=== PATIENT | female | born 1995 | race Caucasian/White ===

== ENCOUNTER 2019-12-01 09:30 | Emergency (ER) | payer OTHER, SELFPAY ==
[2019-12-01 09:42] VITALS: BP 123/72; PULSE 81; RESP 16; TEMP 36.4; O2SAT 100
[2019-12-01] MEDS: GLUCAGON,HUMAN RECOMBINANT 1 MG/ML VIAL IV (13:43)
--- NOTE | 2019-12-01 14:24 | PC.NURSE ---
c/o food bolus to right of throat. Able to eat and drink w/o difficulty.
[2019-12-01 15:12] VITALS: BP 138/70; PULSE 95; RESP 18; O2SAT 100
--- NOTE | 2019-12-01 21:30 | ED.SKABFB ---
HPI - Skin/Abscess/Foreign Bdy <ARIADNE Berg - Last Filed: 12/01/19 21:43> General Chief complaint: Skin/Abscess/Foreign Body Stated complaint: Allergic esophagus, something stuck in throat Time Seen by Provider: 12/01/19 10:57 Source: patient Mode of arrival: Ambulatory Limitations: no limitations History of Present Illness HPI narrative: This is a 24-year-old female, nonsmoker, who presents to ED with history of allergic esophagus and since last night she has a tiny piece of garlic stuck in right-side of throat. Patient reports with allergy esophagus, she has constriction in her esophagus with any types of foods and occasionally has exacerbation. Patient usually relieves her symptoms by throwing up and using muscle relaxant in the past. Patient also had previous EGDs to remove foreign bodies. Patient denies dyspnea, difficulty swallowing, difficulty managing oral secretion. Last menstruation in mid November. Related Data Allergies Allergy/AdvReac Type Severity Reaction Status Date / Time metronidazole [From Flagyl] Allergy Verified 12/01/19 09:42 Review of Systems <ARIADNE Berg - Last Filed: 12/01/19 21:43> Review of Systems Narrative: General: Denies fever, chills, fatigue, malaise, sweats. HEENT: Denies sinus pain, ear pain, sore throat, difficulty swallowing, dizziness. Respiratory: Denies dyspnea, cough, wheezing, hemoptysis, sputum. Cardiovascular: Denies chest pain, palpitations, orthopnea, edema. Gastrointestinal: See HPI : Denies dysuria, frequency, incontinence, hematuria, urinary retention. Musculoskeletal: Denies weakness, joint pain or bony pain. Skin: Denies rash, skin lesions, or other. Neurologic: Denies weakness, headache, numbness, change in speech, confusion, seizures, incoordination. Psychiatric: No concerning psychosocial issues. 12-point review of systems is negative except for those stated above. Patient History <ARIADNE Berg - Last Filed: 12/01/19 21:43> Surgical History Hx of esophagogastroduodenoscopy (Acute) Social History Smoking Status: Never smoker Smoking Status: Never smoker alcohol intake frequency: 0-2 drinks per day Substance Use Type: does not use Exam <ARIADNE Berg - Last Filed: 12/01/19 21:43> Narrative Exam Narrative: GEN: Alert, oriented x 3, well appearing and nourished, and in no acute distress. Head: Normal cephalic, atraumatic. No scalp or temporal tenderness, palpable mass or rash. EYES: Pupils are equal, round, and reactive to light and accommodation. Extraocular muscles are intact bilaterally. There is no subconjunctival hemorrhage, exudate and sclera non-icteric. ENT: Bilateral auditory canals and tympanic membranes clear. Hearing grossly intact. Nose without bleeding, purulent discharge or deviation. Facial sinuses nontender to palpate. Mucous membrane moist, no mucosal lesion. Throat without erythema, tonsillar hypertrophy or exudate. Uvula in midline, airway patent. Neck: Trachea in midline. No JVD, non-tender without lymphadenopathy. No masses or thyroid megaly. Supple, non-tender and no meningeal signs. CARDIAC: Normal regular rate and rhythm without murmurs, gallops, or rubs. No chest wall tenderness. No peripheral edema, cyanosis or pallor. Capillary refill is less than 2 seconds. RESPIRATORY: Lungs are clear to auscultate bilaterally. No cough, wheezes, rales, or rhonchi. No stridor, respiratory distress, increase work of breathing, or accessary muscle used. Able to manage oral secretion without difficulty, no drooling. ABD: Abdomen soft, nontender and non-distended. No guarding or rebound tenderness to palpate. Bowel sounds are normal in all 4 quadrants. There is no palpable masses or organomegaly. EXT: Full painless ROM of all extremities with no loss of sensation, strength, effusion or edema. SKIN: Warm, dry, normal color for patient. No erythema, lesions or rash over visible areas. BACK: Nontender without deformity or crepitance. No flank tenderness. NEUROLOGICAL: Alert and oriented to place, time and person. Sensation and motor function intact bilaterally. No facial droops, dysphasia. PSYCHIATRIC: Good judgement and reason, without hallucinations, abnormal affect or abnormal behaviors during the examination. Initial Vital Signs Initial Vital Signs: Vital Signs Temperature 97.6 F 12/01/19 09:42 Pulse Rate 81 12/01/19 09:42 Respiratory Rate 16 12/01/19 09:42 Blood Pressure 123/72 12/01/19 09:42 Pulse Oximetry 100 12/01/19 09:42 <Radha Thayer DO - Last Filed: 12/03/19 19:33> Initial Vital Signs Initial Vital Signs: Vital Signs Temperature 97.6 F 12/01/19 09:42 Pulse Rate 81 12/01/19 09:42 Respiratory Rate 16 12/01/19 09:42 Blood Pressure 123/72 12/01/19 09:42 Pulse Oximetry 100 12/01/19 09:42 Scores <ARIADNE Berg - Last Filed: 12/01/19 21:43> GCS Meño coma scale eye opening: Spontaneous Meño coma scale verbal response: Orientated [place] coma scale motor response: Obey commands Meño coma scale total score: 15 Course <Behzad ARIADNE Murphy - Last Filed: 12/01/19 21:43> Orders Ordered: Discontinued Medications Al Hydrox/Mg Hydrox/Simethicone 20 ml/ Lidocaine HCl 15 ml 0 ml PO NOW ONE Stop: 12/01/19 14:37 Last Admin: 12/01/19 15:12 Dose: Not Given Documented by: RAYSA Glucagon (Glucagen) 1 mg IV NOW ONE Stop: 12/01/19 10:57 Last Admin: 12/01/19 13:43 Dose: 1 mg Documented by: RAYSA Vital Signs Vital signs: Vital Signs - 8 hr 12/01/19 15:12 Pulse Rate 95 H Respiratory Rate 18 Blood Pressure 138/70 Pulse Oximetry 100 <Radha Thayer DO - Last Filed: 12/03/19 19:33> Orders Ordered: Discontinued Medications Al Hydrox/Mg Hydrox/Simethicone 20 ml/ Lidocaine HCl 15 ml 0 ml PO NOW ONE Stop: 12/01/19 14:37 Last Admin: 12/01/19 15:12 Dose: Not Given Documented by: RAYSA Glucagon (Glucagen) 1 mg IV NOW ONE Stop: 12/01/19 10:57 Last Admin: 12/01/19 13:43 Dose: 1 mg Documented by: RAYSA Vital Signs Vital signs: Vital Signs - 8 hr 12/01/19 15:12 Pulse Rate 95 H Respiratory Rate 18 Blood Pressure 138/70 Pulse Oximetry 100 [facility] - Skin/Abscess/Foreign Bdy <Behzad Perry-ARIADNE Garcia - Last Filed: 12/01/19 21:43> Differential Diagnosis Differential diagnosis: Likely other (Esophageal irritation, esophageal foreign body) Medical Records Attestation: I reviewed the patient's medical records. MDM Narrative Medical decision making narrative: This is 24 year female who reports allergic esophagus with foreign body impaction in her throat who had EGD procedures in the past to relieve this. Patient reports this has been done in [facility] and no previous records were available in [facility] EMR. No drooling, dyspnea, muffled voice or dysphagia appreciated since last night and patient reports having a tiny piece of garlic stuck in her right-sided throat with foreign body sensation. Glucagon was tried via IV and patient was able to swallow a small can of soda but patient reports remaining symptoms. When patient was offered follow-up with [facility] outpatiently since she is able to tolerate fluids and able to manage her own secretion with dyspnea, patient became upset and declined other medications to help with her symptoms such as GI cocktail and requests to be discharged to home. No further imaging test has been considered at this time. Patient's vital signs were stable with 100% oxygenation in RA. Return precautions were discussed with the patient and a referral to [facility] provided. Patient verbalized understanding. Discharge Plan Departure Patient Disposition: Home Clinical Impression: Foreign body of throat Qualifiers: Encounter type: initial encounter Qualified Code(s): T17.208A - Unspecified foreign body in pharynx causing other injury, initial encounter Discharge Date/Time: 12/01/19 15:12 Instructions: DI for Foreign Body, Swallowed-Adult Activity Restrictions/Additional Instructions: You have been diagnosed with [possible foreign body/foreign body sensation in right-sided throat since last night. You were able to swallow fluids and able to manage her oral secretion without difficulty. You were given glucagon IV without much changes.]. What to do: *Take your medications as directed. *Follow up with your primary care provider in 2-3 days/call [facility] for an appointment. Let them know you were seen in the ED and that we asked you to be seen in follow up for a evaluation and possible EGD. *Return to ED if you have any new, worsening, or concerning symptoms, such as [breathing difficulty, chest pain, unable to tolerate fluids, trouble with manage or secretion, fever, or any acute concerns]. Referrals: [facility] [Provider Group] Isis Delgado [Primary Care Provider] -
== END 2019-12-01 15:12 | disposition home or self-care (01) ==
PROVIDERS: Emergency Provider Nurse Practitioner Family; PCP Physician Assistant Medical
DX: T18.128A Food in esophagus causing other injury, initial encounter (principal)
CPT/HCPCS: 96374; 99283; 99284; J1610

== ENCOUNTER 2021-11-03 15:52 | Emergency (ER) | payer OTHER, MEDICAID, SELFPAY ==
[2021-11-03 16:53] VITALS: BP 134/79; PULSE 94; RESP 18; TEMP 36.3; O2SAT 98; BMI 33.5
[2021-11-03 17:31] LABS: Add Manual Diff / Slide Review NO; Basophils Absolute Auto 100 /uL (0-100); Basophils Percent Auto 0.7 % (0-2); Eosinophils Absolute Auto 600 /uL (0-450); Eosinophils Percent Auto 3.9 % (2-4); Hematocrit 39.6 % (36-46); Hemoglobin 13.5 g/dL (12.0-16.0); Lymphocytes Absolute Auto 3300 /uL (1100-4500); Lymphocytes Percent Auto 23.1 % (25-40); Mean Corpuscular HGB Conc 34.1 % (30-36); Mean Corpuscular Hemoglobin 29.6 PG (26-34); Mean Corpuscular Volume 86.8 fL (80-100); Monocytes Absolute Auto 1000 /uL (0-900); Monocytes Percent Auto 6.8 % (3-14); Neutrophils Absolute Auto 9500 /uL (1500-7000); Neutrophils Percent Auto 65.5 % (50-75); Platelet Count 249 X10^3/uL (150-400); Red Blood Cell Count 4.56 X10^6/uL (4.0-5.2); Red Cell Distribution Width 13.7 % (11.6-14.8); White Blood Cell Count 14.5 X10^3/uL (4.5-11.0)
[2021-11-03 17:43] LABS: Alanine Aminotransferase 23 IU/L (<35); Albumin 4.7 g/dL (3.5-5.0); Albumin Globulin Ratio 1.4 (1.0-2.8); Alkaline Phosphatase 74 U/L (38-126); Aspartate Aminotransferase 25 IU/L (14-36); BUN Creatinine Ratio 17.9 (6-22); Bilirubin Total 0.3 mg/dL (0.2-1.3); Blood Urea Nitrogen 14 mg/dL (7-17); Calcium 9.6 mg/dL (8.4-10.2); Carbon Dioxide 26 mmol/L (22-32); Chloride 104 mmol/L (98-107); Estimated Glomerular Filt Rate > 60.0 mL/min (>60); Globulin 3.3 g/dL (1.7-4.1); Glucose 111 mg/dL (70-100); HEMOLYSIS < 15 (0-50); Potassium 3.9 mmol/L (3.4-5.1); Sodium 137 mmol/L (137-145)
[2021-11-03 18:12] LABS: Amorphous Sediment Urine 1+; Bacteria Urine Occasional (0-1); RBC Urine 5-10/HPF (0-5/HPF); Squamous Epithelial Cell Urine 1-5 /HPF (0-5/HPF); WBC Urine 1-5/HPF (0-5/HPF)
[2021-11-03 18:13] LABS: Culture Indicated Urine Cult Not Indicated
[2021-11-03 19:55] VITALS: BP 133/72; PULSE 77; RESP 18; O2SAT 97
--- NOTE | 2021-11-03 20:00 | PC.NURSE ---
worse with movment and urination
--- NOTE | 2021-11-03 20:51 | ED_ITS ---
HPI - Female Genitourinary General Chief complaint: Urogenital-Female Stated complaint: URETHRAL CYST WORSENING Time Seen by Provider: 11/03/21 20:29 Source: patient Mode of arrival: Ambulatory History of Present Illness HPI Narrative: Patient is a 26 year female who is presents with swelling in her vaginal area. She says she wiped and possibly scratched herself 6 days ago. She has noticed progressive swelling over the course of the week and increased pain. She was seen and evaluated 2 days ago by a walk-in clinic who said that she had a urethral cyst. She was put on Bactrim she has taken a few doses of Bactrim. She is able to urinate without any difficulty she denies any dysuria or urinary frequency. She said she was tested for gonorrhea Chlamydia which are both negative. She has tried to squeeze it but it is very hard without any drainage Related Data Previous Rx's Medication Instructions Recorded hydrocodone 5 mg-acetaminophen 325 1 tab PO Q6H PRN #10 tab 11/03/21 mg tablet levofloxacin 750 mg tablet 750 mg PO DAILY 7 Days tab 11/03/21 Allergies Allergy/AdvReac Type Severity Reaction Status Date / Time metronidazole [From Flagyl] Allergy Verified 11/03/21 16:53 Review of Systems Review of Systems Narrative: GENERAL: Denies chills, fatigue, malaise, fever, sweats, travel HEENT: Denies sinus pain, ear pain, sore throat, difficulty swallowing, neck pain RESPIRATORY: Denies dyspnea, cough, wheezing, hemoptysis, sputum. CARDIOVASCULAR: Denies chest pain, palpitations, orthopnea, edema GASTROINTESTINAL: Denies nausea, vomiting, abdominal pain, diarrhea, constipation, melena. : See HPI MUSCULOSKELETAL: Denies weakness, joint pain, or bony pain SKIN: No rash, no erythema, no pruritus NEUROLOGIC: Denies weakness, dizziness, headache, numbness, change in speech, confusion PSYCHIATRIC: No concerning psychosocial issues. 12 point review of systems is negative except for those stated above and HPI Patient History Surgical History Hx of esophagogastroduodenoscopy alcohol intake frequency: 0-2 drinks per day Substance Use Type: does not use Exam Initial Vital Signs Initial Vital Signs: Vital Signs Temperature 97.4 F L 11/03/21 16:53 Pulse Rate 94 H 11/03/21 16:53 Respiratory Rate 18 11/03/21 16:53 Blood Pressure 134/79 11/03/21 16:53 Pulse Oximetry 98 11/03/21 16:53 GENERAL: Alert well-appearing 26-year-old female in no acute distress. HEENT: Head atraumatic,EOMI, pupils reactive, face symmetric, moist mucous membranes CARDIOVASCULAR: Regular rate and rhythm without murmurs, rubs or gallops. RESPIRATORY: Breath sounds equal bilaterally, no wheezes rales or rhonchi. ABDOMEN: Soft, nontender. Normoactive bowel sounds all 4 quadrants. No guarding or rebound. PELVIC: Normal external exam. Normal Labia. urethra is noted to have fluctuant hard area around the urethral mostly on the right side measuring about 2 cm x 1 m very tender to touch no surrounding erythema no obvious strain EXTREMITIES: Normal range of motion, no clubbing or edema. Neurovascularly intact NEUROLOGICAL: Alert and oriented x4.Normal gait and speech. SKIN: Warm, dry, no laceration, no petechiae, no rashes or lesions. Course Orders Ordered: ED Orders 11/03/21 17:11 CBC Auto Diff [Complete Blood Count AUTO DIFF] Stat CMP [Comprehensive Metabolic Panel] Stat Lactate (Lactic Acid) Stat 11/03/21 17:15 Urine Microscopic Stat 11/03/21 18:27 Urine Culture Stat 11/03/21 21:24 CT pelvis w con Stat Discontinued Medications Hydrocodone Bitart/Acetaminophen (Hydrocodone/Acet 5/325 Prepack) 1 bottle MISC SEEINSTR ONE Stop: 11/03/21 22:28 Last Admin: 11/03/21 22:39 Dose: 1 bottle Documented by: JONO Ketorolac Tromethamine (Ketorolac 30 Mg/Ml Vial) 15 mg IV NOW ONE Stop: 11/03/21 20:58 Last Admin: 11/03/21 21:12 Dose: 15 mg Documented by: CRIS Levofloxacin (Levofloxacin 250 Mg Tablet) 750 mg PO NOW ONE Stop: 11/03/21 22:28 Last Admin: 11/03/21 22:37 Dose: 750 mg Documented by: JONO Vital Signs Vital signs: Vital Signs - 8 hr 11/03/21 19:55 11/03/21 22:52 Pulse Rate 77 82 Respiratory Rate 18 18 Blood Pressure 133/72 121/59 L Pulse Oximetry 97 97 MDM - Female Genitourinary Lab Data Result diagrams: 11/03/21 17:11 11/03/21 17:11 Labs: Lab Results 11/03/21 11/03/21 11/03/21 Range/Units 17:11 17:11 17:11 WBC 14.5 H (4.5-11.0) X10^3/uL RBC 4.56 (4.0-5.2) X10^6/uL Hgb 13.5 (12.0-16.0) g/dL Hct 39.6 (36-46) % MCV 86.8 (80-100) fL MCH 29.6 (26-34) PG MCHC 34.1 (30-36) % RDW 13.7 (11.6-14.8) % Plt Count 249 (150-400) X10^3/uL Neut % (Auto) 65.5 (50-75) % Lymph % (Auto) 23.1 L (25-40) % [place] % (Auto) 6.8 (3-14) % Eos % (Auto) 3.9 (2-4) % Baso % (Auto) 0.7 (0-2) % Neut # (Auto) 9500 H (2040-3780) /uL Lymph # (Auto) 3300 (5330-9776) /uL [place] # (Auto) 1000 H (0-900) /uL Eos # (Auto) 600 H (0-450) /uL Baso # (Auto) 100 (0-100) /uL Sodium 137 (137-145) mmol/L Potassium 3.9 (3.4-5.1) mmol/L Chloride 104 (98-107) mmol/L Carbon Dioxide 26 (22-32) mmol/L BUN 14 (7-17) mg/dL Creatinine 0.78 (0.52-1.04) mg/dL Estimated GFR > 60.0 (>60) mL/min BUN/Creatinine Ratio 17.9 (6-22) Glucose 111 H (70-100) mg/dL Lactate 1.3 (0.7-2.1) mmol/L Calcium 9.6 (8.4-10.2) mg/dL Total Bilirubin 0.3 (0.2-1.3) mg/dL AST 25 (14-36) IU/L ALT 23 (<35) IU/L Alkaline Phosphatase 74 (38-126) U/L Total Protein 8.0 (6.3-8.2) g/dL Albumin 4.7 (3.5-5.0) g/dL Globulin 3.3 (1.7-4.1) g/dL Albumin/Globulin Ratio 1.4 (1.0-2.8) Urine RBC (0-5/HPF) Urine WBC (0-5/HPF) Ur Squamous Epith Cells (0-5/HPF) Amorphous Sediment Urine Bacteria (None) Ur Culture Indicated? 11/03/21 Range/Units 17:15 WBC (4.5-11.0) X10^3/uL RBC (4.0-5.2) X10^6/uL Hgb (12.0-16.0) g/dL Hct (36-46) % MCV (80-100) fL MCH (26-34) PG MCHC (30-36) % RDW (11.6-14.8) % Plt Count (150-400) X10^3/uL Neut % (Auto) (50-75) % Lymph % (Auto) (25-40) % [place] % (Auto) (3-14) % Eos % (Auto) (2-4) % Baso % (Auto) (0-2) % Neut # (Auto) (0860-1713) /uL Lymph # (Auto) (7450-6008) /uL [place] # (Auto) (0-900) /uL Eos # (Auto) (0-450) /uL Baso # (Auto) (0-100) /uL Sodium (137-145) mmol/L Potassium (3.4-5.1) mmol/L Chloride (98-107) mmol/L Carbon Dioxide (22-32) mmol/L BUN (7-17) mg/dL Creatinine (0.52-1.04) mg/dL Estimated GFR (>60) mL/min BUN/Creatinine Ratio (6-22) Glucose (70-100) mg/dL Lactate (0.7-2.1) mmol/L Calcium (8.4-10.2) mg/dL Total Bilirubin (0.2-1.3) mg/dL AST (14-36) IU/L ALT (<35) IU/L Alkaline Phosphatase (38-126) U/L Total Protein (6.3-8.2) g/dL Albumin (3.5-5.0) g/dL Globulin (1.7-4.1) g/dL Albumin/Globulin Ratio (1.0-2.8) Urine RBC 5-10/hpf H (0-5/HPF) Urine WBC 1-5/hpf (0-5/HPF) Ur Squamous Epith Cells 1-5 /hpf (0-5/HPF) Amorphous Sediment 1+ Urine Bacteria Occasional (0-1) (None) Ur Culture Indicated? Cult not indicated Point of Care Testing Test Results Negative Urine Dip Bedside Urine Glucose Negative Bedside Urine Bilirubin - Negative Bedside Urine Ketone - Negative Urine Specific Hines 1.030 Bedside Urine Occult Blood +/- Bedside Urine pH 6.0 Bedside Urine Protein - Negative Bedside Urine Urobilinogen - Negative Bedside Urine Nitrite - Negative Bedside Urine Leukocytes - Negative Esterase Imaging Data CT scan - abdomen/pelvis: Radiologist's Impression: PROCEDURE:? CT PELVIS W CON ? INDICATIONS:? urethral cyst/abcess right side ? TECHNIQUE:? After the administration of intravenous contrast, 5 mm thick sections acquired from the iliac crests to the symphysis.? 5 mm coronal and sagittal reformats were acquired.? For radiation dose reduction, the following was used:? automated exposure control, adjustment of mA and/or kV according to patient size.? ? COMPARISON:? None. ? FINDINGS:? Image quality:? Excellent.? ? Peritoneum and bowel:? Bowel loops demonstrate normal wall thickness and caliber.? No free fluid or air.? ? Genitourinary:? Bladder wall thickness is normal.? Note is made of a periurethral rounded fluid collection measuring 1.2 x 1.3 cm, with a single small gas bubble at its anterior aspect and slightly more superior 2 small adjacent gas bubbles at its posterior aspect.? The exact anatomy in relationship to the [place] urethra is indeterminate, and it is unclear whether this would represent a manifestation of a periurethral diverticulum or abscess formation. ? Nodes and vessels:? No iliac, pelvic, or inguinal adenopathy by size criteria.? Iliac vessels demonstrate normal size and enhancement.? ? Bones:? No suspicious bony lesions.? ? Miscellaneous:? No inguinal hernias.? ? IMPRESSION:? 1.2 x 1.3 cm small nonobstructive fluid collection in the expected course of the urethra, potentially and considered more likely a periurethral diverticulum than a focal abscess given the sharp demarcation of the soft tissue borders.? As noted, 2 small gas bubbles are seen superiorly and posteriorly at the fluid collection border and a single small gas bubble is seen at the midline more inferiorly and anteriorly to the collection.? Elective follow-up MR scanning with contrast would likely provide improved anatomic detail.? Bladder distension is not seen.? No additional pelvic abnormality is found. ? ? Dictated by: Jaziel Weaver M.D. on 11/03/2021 at 22:00 ? ? Approved by: Jaziel Weaver M.D. on 11/03/2021 at 22:05 ? [facility] Narrative Medical decision making narrative: Patient definitely has a fluctuation around her urethra. The patient has area of swelling concern for cyst versus abscess. She also has leukocytosis of 14 while taking Bactrim. Although she has not had many doses of Bactrim. [address] Roca who stated that urology was more appropriate suggested possible MRI. 2114Dr. Mims consult did recommended CT pelvis and changing antibiotic to for quinolone. Warm compresses clinically sounds like a ductal cyst knee spontaneously improved. He is happy to follow her as an outpatient. The patient is found to have a at diverticula of her urethra off. She has mild leukocytosis of 14. She is given 1 dose of Levaquin here in the ED. She will have follow-up with Dr. Mims. The patient overall appears well. I have discussed with her warm compresses Sitz baths and close monitoring. Discharge Plan Departure Patient Disposition: Home Clinical Impression: Urethral gland, cyst Instructions: DI for Urinary Tract Infection (UTI) Activity Restrictions/Additional Instructions: *You have been diagnosed with urethral cyst *What to do: This should resolve spontaneously. The main find that have some blood in your urine when it ruptures. You will need close follow-up. Continue Sitz baths and warm compresses. *Continue to take medications as directed Stop taking Bactrim Start taking Levaquin once daily for 7 days Ronceverte 1 tablet every 6 hours if needed for severe pain Ibuprofen 600 mg every 6 hours if needed for [id number] pain *Follow up with your primary care provider in 2-3 days or call [phone] Mims, Urology on Friday to schedule follow-up appointment *Return to ER if you should have fever greater than 101, increasing redness, increasing pain difficulty urinating or any new, worsening or concerning symptoms Prescriptions: New levofloxacin 750 mg tablet 750 mg PO DAILY 7 Days 0RF hydrocodone-acetaminophen 5-325 mg tablet 1 tab PO Q6H PRN (Reason: pain) Qty: 10 0RF Referrals: Beka Mims MD [Physician] -
[2021-11-03 21:09] LABS: Lactate (Lactic Acid) 1.3 mmol/L (0.7-2.1)
[2021-11-03] MEDS: KETOROLAC 30 MG/ML VIAL 15 MG IV (21:12)
--- NOTE | 2021-11-03 21:24 | DI.CT.S_ITS ---
PROCEDURE: CT PELVIS W CON INDICATIONS: urethral cyst/abcess right side TECHNIQUE: After the administration of intravenous contrast, 5 mm thick sections acquired from the iliac crests to the symphysis. 5 mm coronal and sagittal reformats were acquired. For radiation dose reduction, the following was used: automated exposure control, adjustment of mA and/or kV according to patient size. COMPARISON: None. FINDINGS: Image quality: Excellent. Peritoneum and bowel: Bowel loops demonstrate normal wall thickness and caliber. No free fluid or air. Genitourinary: Bladder wall thickness is normal. Note is made of a periurethral rounded fluid collection measuring 1.2 x 1.3 cm, with a single small gas bubble at its anterior aspect and slightly more superior 2 small adjacent gas bubbles at its posterior aspect. The exact anatomy in relationship to the [place] urethra is indeterminate, and it is unclear whether this would represent a manifestation of a periurethral diverticulum or abscess formation. Nodes and vessels: No iliac, pelvic, or inguinal adenopathy by size criteria. Iliac vessels demonstrate normal size and enhancement. Bones: No suspicious bony lesions. Miscellaneous: No inguinal hernias. IMPRESSION: 1.2 x 1.3 cm small nonobstructive fluid collection in the expected course of the urethra, potentially and considered more likely a periurethral diverticulum than a focal abscess given the sharp demarcation of the soft tissue borders. As noted, 2 small gas bubbles are seen superiorly and posteriorly at the fluid collection border and a single small gas bubble is seen at the midline more inferiorly and anteriorly to the collection. Elective follow-up MR scanning with contrast would likely provide improved anatomic detail. Bladder distension is not seen. No additional pelvic abnormality is found. Dictated by: Jaziel Weaver M.D. on 11/03/2021 at 22:00 Approved by: Jaziel Weaver M.D. on 11/03/2021 at 22:05
[2021-11-03] MEDS: levoFLOXacin 250 MG TABLET 750 MG PO (22:37)
[2021-11-03] MEDS: HYDROCODONE/ACET 5/325 PREPACK 1 BOTTLE MISC (22:39)
[2021-11-03 22:52] VITALS: BP 121/59; PULSE 82; RESP 18; O2SAT 97
== END 2021-11-03 22:53 | disposition home or self-care (01) ==
PROVIDERS: Emergency Medicine; Emergency Provider Emergency Medicine
DX: N36.8 Other specified disorders of urethra (principal)
CPT/HCPCS: 72193; 80053; 81003; 81015; 81025; 83605; 85025; 87086; 96374; 99284; J1885; Q9967

== ENCOUNTER → 2022-04-01 16:27 | Outpatient (CLI) | payer OTHER, MEDICAID, SELFPAY ==
--- NOTE | 2022-04-01 16:29 | DI.MRI.S_ITS ---
PROCEDURE: MR PELIS WO/W CON INDICATIONS: Cyst on urethra TECHNIQUE: Noncontrast coronal HASTE; 3-plane nonbreath-hold T2 FSE, axial T1 FSE with and without fat saturation obtained through the urethra and bladder. After the administration of contrast, axial and sagittal VIBE or 2-D FLASH with fat saturation obtained through the urethra and bladder. Optional diffusion weighted imaging or ADC may be performed. COMPARISON: [facility], CT, CT PELVIS W CON, 11/03/2021, 21:28. FINDINGS: Image quality: Excellent. Urethra: Urethra is normal in caliber. Along the right posterolateral aspect of the lower urethra/external urethral meatus, a small cystic structure is redmonstrated mesauring 1.5 x 1.4 x 1.4 centimeters (series 3, image 11 and series 5, image 11). This is similar to minimally increased in size compared to the prior CT. Internal signal is homogeneously T2 hyperintense. No definite suspicious features such as soft tissue nodularity or abnormal enhancement. No communication with the urethra lumen identified. Genitalia / Pelvic organs: Vaginal wall is unremarkable in thickness. Uterus and ovaries appear unremarkable where visualized. Peritoneum and bowel: No pathologic free pelvic fluid. Visualized inferior colon loops, rectum, and anus appear normal. Soft tissues: Ischiorectal fossa appears normal in morphology. No adenopathy by size criteria. IMPRESSION: Redemonstrated approximately 1.5 centimeter cystic structure along the right posterolateral aspect of the lower urethra/external urethral meatus, similar to slightly increased in size. The appearance and position of the finding is more suggestive of a [place]'s gland cyst rather than a urethral diverticulum. Dictated by: Benny Westbrook M.D. on 04/03/2022 at 9:52 Approved by: Benny Westbrook M.D. on 04/03/2022 at 10:21
== END ==
PROVIDERS: Referring Provider Urology; Visit Provider Urology
DX: N36.8 Other specified disorders of urethra (principal)
CPT/HCPCS: 72197; A9579

== ENCOUNTER → 2022-04-10 08:34 | Outpatient (CLI) | payer OTHER, MEDICAID, SELFPAY ==
[2022-04-10 09:11] LABS: COVID19 -Nasal RAPID Negative (Negative)
== END ==
PROVIDERS: Visit Provider Urology
DX: Z20.822 Contact with and (suspected) exposure to COVID-19 (principal)
CPT/HCPCS: 87635; C9803

== ENCOUNTER → 2022-04-17 16:03 | Outpatient (CLI) | payer OTHER, MEDICAID, SELFPAY ==
[2022-04-17 16:40] LABS: COVID19 -Nasal RAPID Negative (Negative)
== END ==
PROVIDERS: Visit Provider Urology
DX: Z20.822 Contact with and (suspected) exposure to COVID-19 (principal)
CPT/HCPCS: 87635; C9803

== ENCOUNTER 2022-04-19 09:22 | Day surgery (SDC) | payer OTHER, MEDICAID, SELFPAY ==
[2022-04-18 13:40] VITALS: BMI 34.0
[2022-04-19] VITALS (10 sets, daily range): BP systolic 118–139; BP diastolic 64–79; PULSE 74–900; RESP 12–97; TEMP 36.3–36.9; O2SAT 15–100; BMI 34.0
--- NOTE | 2022-04-19 | PATH_ITS ---
[facility] Accession Number: [id number] . 01 Material submitted: . paraurethral glands - PARAURETHRAL GLAND CYST . 01 Diagnosis: Periurethral Gland Cyst: Consistent with a benign urothelial cyst. Negative for dysplasia and malignancy. V 04/22/2022 1410 Local . 01 Electronically signed: . Mayi Hodgson MD, Pathologist NPI- [id number] . 01 Gross description: . Received in formalin, labeled with the patient's name and designated 1. Paraurethral gland cyst, is a 2.2 x 1.8 x 1.5 cm intact cyst, focally lined with kiser mucosa. Sectioning reveals a unilocular, thin-walled cystic cut surface filled with yellow, opaque, watery debris. No thickened areas or other lesions are identified. The tissue is sectioned and entirely submitted in cassettes A1-A2. (NATHAN:[id number]) /[facility] 04/20/2022 1723 Local . 01 Pathologist provided ICD-10: N36.9 . 01 CPT . 100425 Specimen Comment: A courtesy copy of this report has been sent to [phone] Performed at: 01 [facility] [address] [place] [address] [address], [place], [place] [id number] MD Clifford Zambrano MD Phone: [phone]
[2022-04-19] MEDS: LACTATED RINGERS 1,000 ML 100 ML IV ×2 (10:35→13:05)
--- NOTE | 2022-04-19 11:42 | PM.PREOP ---
Pre-operative Note COVID-19 COVID-19 status: Negative Result date/Date tested (Pos, Neg/Pending): 04/17/22 Criteria for continued procedure: Delay expected to result in less-positive ultimate med/surg outcome and Non-surgical alternatives not available or appropriate per current SOC Interval Note History & Physical reviewed/Exam performed by Physician: Yes Changes to H&P: No
--- NOTE | 2022-04-19 11:48 | SUR.OPER ---
Lithotomy on padded OR bed, head on pillow, arms secured on padded arm boards at <90 degrees abduction. Legs secured in padded yellow fins stirrups.
[2022-04-19] MEDS: CEFAZOLIN 2 GM/20 ML SYRINGE IV (12:04)
[2022-04-19] MEDS: BUPIVACAINE 0.5% (PF) 30 ML, EPINEPHrine 0.15 MG INJ (12:28)
[2022-04-19] MEDS: BACITRACIN 28 GM OINT 1 APPLIC TOP (13:28)
--- NOTE | 2022-04-19 13:33 | P.OP_ITS ---
Procedure & Clinicians Procedure: Excision of periurethral cyst ([place] gland cyst) Same procedure as scheduled: Yes Indications: This is a 27-year-old female who originally presented to the emergency department with complaint of a painful swelling in the vaginal area. She received antibiotics for an infected [place]'s gland cyst. The patient reports that after that the symptoms resolved and the cyst appeared to go away. It has since recurred and she finds this quite bothersome especially during intercourse and also disrupts her urinary stream and she wishes it removed. An MRI confirmed this to be a [place]'s gland cyst. The patient presents at this time for excision of the cyst. Surgeon: Beka Mims Click Yes if Unassisted: Yes Anesthesia Type: General Operative Notes Findings: Findings: External genitalia were normal. Vaginal mucosa was normal except for a 1.3-1.5 cm round ball audible cystic lesion on the posterior right aspect of the urethral meatus extending proximal into the vagina. This is consistent with a [place]'s gland duct cyst. And removal of it it was round of block double. It was closely adherent to the urethra likely because of the previous infection. This adherence resulted in a small defect at the urethral meatus which was repaired. No other abnormalities were noted and no significant active inflammatory changes were noted there was no evidence of infection. A 16 [place] silicone catheter was left in place with 10 cc of sterile water in the balloon. Closure Type: primary Specimen(s): other ([place]'s gland cyst) Applied: catheter (16 [place] silicone 10 cc in balloon) Estimated Blood Loss (mL): 75 Blood products transfused: none Procedure in detail: Procedure in detail: After informed consent was obtained, the patient was identified and brought to the operating room. She was then placed in a supine position on the table where anesthesia was induced to maintain. After ensuring an adequate level of anesthesia the patient was placed in lithotomy position. Patient was then prepped, draped and prepared for vaginal procedure. After prepping draping and his urine an adequate level of anesthesia a weighted speculum was put in place the [place] retractor was then also put in place and retraction obtain. The margins of the cyst were marked on the vaginal mucosa. And this area was infiltrated with 0.5% Marcaine with epinephrine. Then using sharp and electrocautery dissection the cyst was circumferentially excised. Points of bleeding were controlled with electrocautery. The small defect in the urethral meatus was repaired with 4-0 interrupted 4-0 chromic gut. The wound was then irrigated and closure obtained in the following fashion. The vaginal mucosa was approximated to the urethral meatus with interrupted 2-0 chromic gut suture. The remainder of the vaginal mucosa was reapproximated with a running 2 0 Vicryl. Bacitracin was applied the repair appeared to be excellent. The catheter was placed to gravity drainage the patient was awakened and taken to the postanesthesia care unit having tolerated the procedure well there were no complications and the patient will follow up my office. The patient will be discharged home with a Mena catheter. Complications: none Post-operative Condition: stable Disposition: PACU Plan for aftercare: Patient is to go home with a Mena catheter to return to my office in approximately 10- 14 days.
[2022-04-19] MEDS: ONDANSETRON 4 MG/2 ML INJ IV (13:57)
[2022-04-19] MEDS: fentaNYL 100 MCG/2 ML INJ IV (14:02)
[2022-04-19] MEDS: METOCLOPRAMIDE 10 MG/2 ML INJ IV (14:20)
[2022-04-19] MEDS: OXYCODONE/ACETAMINOPHEN 5/325 TABLET 1 TAB PO (14:36)
--- NOTE | 2022-04-19 15:21 | SUR.PHASEII ---
babin and leg bag instructions given. Pt verbalizes understanding.
== END 2022-04-19 15:00 | disposition home or self-care (01) ==
PROVIDERS: PCP Physician Assistant; Referring Provider Urology; Visit Provider Urology
PROC: (CPT 53270; principal; 2022-04-19 11:45)
DX: N36.8 Other specified disorders of urethra (principal); K21.9 Gastro-esophageal reflux disease without esophagitis; F32.A Depression, unspecified; E66.9 Obesity, unspecified; Z97.8 Presence of other specified devices; Z68.34 Body mass index [BMI] 34.0-34.9, adult
CPT/HCPCS: 53270; 82962; J0171; J0690; J1100; J1885; J2250; J2405; J2704; J2765; J3010

== ENCOUNTER 2022-05-02 21:42 | Emergency (ER) | payer OTHER, MEDICAID, SELFPAY ==
[2022-05-02 21:54] VITALS: BP 147/73; PULSE 105; RESP 18; TEMP 36.6; O2SAT 96; BMI 32.5
== END 2022-05-03 02:59 | disposition left against medical advice (07) ==
PROVIDERS: Emergency Provider Emergency Medicine; PCP Physician Assistant
CPT/HCPCS: 99281